=== PATIENT | male | born 1940 | race Caucasian/White ===

== ENCOUNTER 2016-06-08 07:05 | Day surgery (SDC) | payer MEDICARE, BC ==
[~2016-06-08] VITALS: Ht 180.3 cm; Wt 78.3 kg
--- NOTE | 2016-06-26 10:23 | OR ---
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 PREPROCEDURE DIAGNOSIS: Chronic cholecystitis. POSTPROCEDURE DIAGNOSES: Chronic cholecystitis and right liver lobe neuroendocrine tumor. PROCEDURE: Laparoscopic cholecystectomy, intraoperative cholangiogram. INDICATIONS: The patient is a 75-year-old with a known liver neuroendocrine cancer. He has had some chronic right upper quadrant abdominal discomfort with correct radiographic evidence of gallstones, who presents for laparoscopic cholecystectomy for chronic cholecystitis. FINDINGS: The patient was taken to the operating room. General endotracheal anesthesia was induced. The patient's abdomen was prepped and draped in normal sterile fashion. The case was begun by making a transverse supraumbilical 5 mm skin incision using #11 blade. A retractable 5-mm port was placed within the abdomen. The abdomen was inflated with CO2 to an intraabdominal pressure of 15 mmHg. A camera was placed showing no bowel or vascular injury. A midepigastric 11 mm port as well as 2 right upper quadrant 5 mm ports were placed under direct vision. The case was begun by noting a distended gallbladder and the neuroendocrine tumor lateral to the gallbladder in the right liver lobe. I was able to grasp the gallbladder, we were able to take omental adhesions to the gallbladder, body, and infundibulum down with electrocautery and Maryland instrument. A Maryland instrument was then used to dissect out both the cystic duct and artery without difficulty. Two clips were applied proximally, one distally on the artery, and the artery was severed. A proximal clip was placed on the duct. The duct was cut in half. A cholangiogram catheter was placed and a cholangiogram was shot showing no filling defects with contrast flow into the duodenum as well as intrahepatic ductal filling of contrast. The cholangiogram catheter was then removed. Three distal cystic duct clips were applied. The remainder of the duct was then severed. The dissection was then carried out using electrocautery from a posterior to anterior fashion, removing the gallbladder from liver bed. The gallbladder was placed in an EndoCatch bag and brought out through the midepigastric port site. On reexamination of the operative site, there was a ADMIT: 06/08/2016 RM/LOC: [facility] MR#: [id number] [address] [address] PRESLEY ZUNIGA [address] [place] [address] Operative/Delivery Room Report SEX: M AGE: 75 : 1940 small amount of bleeding right near where the liver bed fossa, gallbladder fossa, and the tumor was, controlled with electrocautery. I did take down some adhesions from the omentum at an abdominal wall to the tumor, taken that down with electrocautery if that may have been causing some of his discomfort as well. I have injected 0.5% Marcaine subdermally and subfascially for postoperative analgesia. The midepigastric fascial incision was closed with a [id number] 0 Polysorb suture passer. The air was desufflated. The port sites removed. The skin sites were closed with interrupted 4-0 Vicryl subcuticular skin stitches. Wounds were cleaned and dried. Steri-Strips and Tegaderms were applied over the top. Needle, sponge, and instrument counts were correct at the end of the case. The patient was extubated and wheeled to recovery room in good condition. Braxton Constantino MD/ july JOB #: [id number] CC: Braxton Constantino, Attending Physician Nino Soliz, Family Physician
[2016-10-08] MEDS ORDERED: K-PHOS NEUTRAL250 MG PO (13:12)
[2016-10-08] MEDS ORDERED: MS CONTIN DPS30 MG PO (13:12)
[2016-10-08] MEDS ORDERED: ARMOUR THYROID30 M1 PO (13:13)
[2016-10-08] MEDS ORDERED: NORVASC5 MG PO (13:13)
[2016-10-08] MEDS ORDERED: FLOMAX0.4 MG PO (13:13)
[2016-10-08] MEDS ORDERED: FLEXERIL DPS5 MG PO (13:13)
[2016-10-08] MEDS ORDERED: NEXIUM 24HR20 M1 PO (13:14)
[2016-10-08] MEDS ORDERED: SENOKOT DPS8.6 MG PO (13:14)
[2016-10-08] MEDS ORDERED: MIRALAX PACKET17 GM PO (13:14)
[2016-10-08] MEDS ORDERED: COLACE-DPS100 MG PO (13:14)
[2016-10-08] MEDS ORDERED: TYLENOL EXTRA500 M1 PO (13:15)
[2016-10-08] MEDS ORDERED: MAALOX DPS30 ML PO (13:15)
== END 2016-06-08 12:15 | disposition home or self-care (01) ==
LOC: SSS 07:05
DX: K80.10 Calculus of gallbladder with chronic cholecystitis without obstruction (principal); K82.4 Cholesterolosis of gallbladder; I10 Essential (primary) hypertension; K21.9 Gastro-esophageal reflux disease without esophagitis; E07.9 Disorder of thyroid, unspecified; E78.5 Hyperlipidemia, unspecified; Z98.890 Other specified postprocedural states; Z79.899 Other long term (current) drug therapy